=== PATIENT | female | born 1980 | race Caucasian/White ===

== ENCOUNTER → 2016-10-20 | Outpatient (REF) | payer BC | LOC: M SFHCWAGY 14:25 | PROVIDERS: ATTEND Nurse Practitioner Women's Health | DX: Z12.4 Encounter for screening for malignant neoplasm of cervix (principal) ==

== ENCOUNTER → 2016-10-28 | Outpatient (CLI) | payer BC ==
--- NOTE | 2016-10-28 10:31 | REP ---
PELVIC ULTRASOUND: Real-time sonographic evaluation of the pelvis performed utilizing transabdominal and endovaginal technique. Bladder measures 5.6 x 10.1 x 4.2 cm. The uterus measures 8.9 x 4.1 x 6.3 cm. Endometrial thickness is 4 mm with no endometrial fluid collection. Right ovary measures 2.6 x 1.5 x 2.0 cm. Left ovary measures 6.4 x 3.8 x 4.2 cm. There is a cyst of the left ovary 3.9 x 2.7 x 3.5 cm. There is blood flow seen in both ovaries with duplex Doppler evaluation, with no torsion, RI right ovary is 0.53 and left ovary 0.70. IMPRESSION: Left ovarian cyst with a maximum diameter of 3.9 cm. No free fluid. No torsion.
== END ==
LOC: M WHC 08:03
PROVIDERS: ATTEND Nurse Practitioner Women's Health
DX: N83.202 Unspecified ovarian cyst, left side (principal)

== ENCOUNTER 2017-06-12 06:00 | Day surgery (SDC) | payer OTHER ==
[~2017-06-12] VITALS: Ht 172.7 cm; Wt 76.8 kg
[~2017-06-12 06:00] MED LIST: VENTAER IN; WELLTAB38 PO
[2017-06-12] MEDS ORDERED: LR 1,000 ML IV SCH ×2 (06:15→09:15)
[2017-06-12 06:58] LABS: CONTROL LINE HCG INT CTR LINE PRESENT
[2017-06-12] MEDS ORDERED: BUPIVACAINE HCL 0.25% 30 ML VIAL As Ordered ONE (07:10)
[2017-06-12] MEDS ORDERED: PROPOFOL 200 MG/20 ML VIAL As Ordered ONE (07:47)
[2017-06-12] MEDS ORDERED: MIDAZOLAM INJ 2 MG/2 ML VIAL (J2250) As Ordered ONE (07:47)
[2017-06-12] MEDS ORDERED: ROCURONIUM BROMIDE 50 MG/5 ML VIAL As Ordered ONE (07:47)
[2017-06-12] MEDS ORDERED: KETOROLAC 60 MG/2 ML VIAL (J1885) As Ordered ONE (07:47)
[2017-06-12] MEDS ORDERED: LIDOCAINE 2% INJ 100 MG/5 ML SDV (FOR ANES.) As Ordered ONE (07:47)
[2017-06-12] MEDS ORDERED: ONDANSETRON 4MG/2ML VIAL (J2405) As Ordered ONE (07:47)
[2017-06-12] MEDS ORDERED: fentaNYL 100 MCG/2 ML INJECTION (J3010) As Ordered ONE (07:47)
[2017-06-12] MEDS ORDERED: dexameTHASONE 4 MG/ML 1ML VIAL (J1100) As Ordered ONE (07:47)
--- NOTE | 2017-06-12 08:51 | RO ---
DATE OF PROCEDURE: 06/12/2017 PREOPERATIVE DIAGNOSIS: Recurrent left ovarian cyst. POSTOPERATIVE DIAGNOSES: Left ovarian cyst. Pelvic congestion syndrome. PROCEDURE: Diagnostic operative laparoscopy with a left salpingo-oophorectomy. SURGEON: Zeina Cerda MD TENTER FRAME OPERATOR: Alvrao Osorio DO ANESTHESIA: General endotracheal anesthesia. ESTIMATED BLOOD LOSS: 5 mL. INTRAVENOUS FLUIDS: 1 liters of lactated Ringer solution. URINE OUTPUT: 800 mL. SPECIMEN: Left adnexa. PREOPERATIVE ANTIBIOTICS: None. INFECTION CLASSIFICATION: 1. OPERATIVE FINDINGS: Patient with approximately 3 cm left ovarian cyst. Normal appearing uterus. Normal appearing liver edge. There are dilated pelvic vessels along the left side consistent with pelvic congestion syndrome. DESCRIPTION OF OPERATION: After informed consent was obtained and written content was reviewed, the patient was brought to the operating room where general endotracheal anesthesia was obtained. She was then placed in lithotomy position and was prepped and draped in a normal sterile fashion. A time out in the operating room was then performed identifying the patient, the procedure to be performed, as well as drug allergies. A bivalved speculum was then placed in the vagina revealing the cervix. The anterior lip of the cervix was grasped with a single toothed tenaculum. Hulka tenaculum was then advanced through the cervical os for means to manipulate the uterus. The single tooth tenaculum and speculum was then removed. A Kiser catheter was then placed and set to gravity. Gloves were changed and attention was turned to the patient's abdomen where 0.25% Marcaine was infused in the umbilical region. This area was incised and a 10 mm trocar and sleeve was advanced through this incision. The laparoscope was then replaced revealing intra-abdominal placement. A pneumoperitoneum was then obtained with CO2 gas. Two additional port sites were placed on each side of the patient's abdomen. These areas were infused with 0.25% Marcaine. Incision was made in each one of these areas and 5 mm trocars and sleeves were advanced through each one of these incisions under direct visualization. Next, the abdomen was then surveyed with the above noted findings. Next, a left salpingo-oophorectomy was then performed. The left adnexa was placed on traction. The infundibulopelvic ligament on the left side was then cauterized and ligated using harmonic Kerwin scalpel device with good hemostasis noted. The mesosalpinx was then also cauterized and ligated using the harmonic Kerwin scalpel device. The uterine-ovarian ligament and fallopian tube was then detached at the level of the uterus with good hemostasis noted. The specimen was then placed in an Endo Catch bag and was removed from the patient's abdomen. The surgical sites were inspected and noted to be hemostatic. The umbilical port site fascia was closed using a Felix-Ahuja system with an #0 Vicryl. The pneumoperitoneum was then released. All three port site incisions were closed with #4-0 Monocryl and dressed with Dermabond. The Hulka tenaculum was then removed. Tenaculum sites were noted to be hemostatic. The Kiser catheter was removed. The patient was then taken out of lithotomy position and was awakened from general anesthesia and taken to recovery in stable condition. Counts were correct. MTDD
[2017-06-12] MEDS ORDERED: ONDANSETRON 4MG/2ML VIAL (J2405) IV PRN (09:15)
[2017-06-12] MEDS ORDERED: fentaNYL 100 MCG/2 ML INJECTION (J3010) IV PRN (09:15)
[2017-06-12] MEDS ORDERED: PERCOCET 5MG/325MG TAB PO PRN ×2 (09:15)
[2017-06-12] MEDS ORDERED: NEOSTIGMINE 10 MG/10 ML VIAL (J2710) As Ordered ONE (09:17)
[2017-06-12] MEDS ORDERED: GLYCOPYRROLATE INJ 0.2 MG/ML 2 ML VIAL As Ordered ONE (09:17)
[2017-06-12 10:55] VITALS: BP 132/75
[2017-06-12] MEDS ORDERED: KETOROLAC 30 MG/ML VIAL (J1885) IV SCH (14:00)
== END 2017-06-12 10:56 | disposition home or self-care (01) ==
LOC: M SDC 06:00
PROVIDERS: ATTEND Obstetrics & Gynecology
DX: N83.291 Other ovarian cyst, right side (principal); N94.89 Other specified conditions associated with female genital organs and menstrual cycle; R01.0 Benign and innocent cardiac murmurs; K21.9 Gastro-esophageal reflux disease without esophagitis; J45.909 Unspecified asthma, uncomplicated; R06.83 Snoring; Z79.899 Other long term (current) drug therapy
CPT/HCPCS: 36415; 58661; 84703; 85014; 85018; 86850; 86900; 86901; 88305; J1100; J1885; J2250; J2405; J2710; J3010

== ENCOUNTER → 2017-11-28 | Outpatient (REF) | payer OTHER | LOC: M LAB REF 17:26 | DX: N92.6 Irregular menstruation, unspecified (principal) | CPT/HCPCS: 88304 ==

== ENCOUNTER 2018-02-06 19:45 | Emergency (ER) | payer OTHER | END 2018-02-06 22:43 | disposition home or self-care (01) | LOC: M ED 19:45 | DX: R51 Headache (principal); M54.2 Cervicalgia; R68.84 Jaw pain; H92.01 Otalgia, right ear; Z82.3 Family history of stroke; J45.909 Unspecified asthma, uncomplicated; F41.9 Anxiety disorder, unspecified; F32.9 Major depressive disorder, single episode, unspecified; Z79.899 Other long term (current) drug therapy | CPT/HCPCS: 70450 ==

== ENCOUNTER → 2018-11-03 | Outpatient (CLI) | payer OTHER ==
[~2018-11-03] MED LIST changes: +ACET-683 PO; +FLUO1TAB3 PO; +IBUP-1114 PO
--- NOTE | 2018-11-04 09:17 | REP ---
Cervical spine seven views: Comparison is 01/12/2016. Vertebral body heights, interspacing alignment are normal. The prevertebral soft tissues are unremarkable. The facets are normally aligned. There is no listhesis on flexion or extension. The foramen are patent. The odontoid view is unremarkable. Impression: Negative cervical spine. There is no interval change. Electronically Signed by Van Martinez MD 11/03/2018 03:43 P
== END ==
LOC: M WUC 14:00
PROVIDERS: ATTEND Physician Assistant
DX: S13.4XXA Sprain of ligaments of cervical spine, initial encounter (principal); X58.XXXA Exposure to other specified factors, initial encounter; Y92.89 Other specified places as the place of occurrence of the external cause

== ENCOUNTER → 2019-03-06 | Outpatient (CLI) | payer OTHER ==
--- NOTE | 2019-03-06 18:38 | REP ---
HISTORY: Pain. COMPARISON: There are no priors for comparison. FINDINGS: There is no acute fracture, dislocation, subluxation, or joint effusion. Electronically Signed by Sam Kruger DO 03/07/2019 10:53 A
== END ==
LOC: M WUC 15:21
PROVIDERS: ATTEND Nurse Practitioner Family
DX: M25.521 Pain in right elbow (principal)

== ENCOUNTER → 2019-07-16 | Outpatient (REF) | payer OTHER ==
[2019-07-16 13:36] LABS: LUTEINIZING HORMONE 4.7 mIU/mL
== END ==
LOC: M LAB REF 12:46
PROVIDERS: ATTEND Family Medicine
DX: E53.8 Deficiency of other specified B group vitamins (principal); R61 Generalized hyperhidrosis

== ENCOUNTER → 2020-08-18 | Outpatient (REF) | payer OTHER ==
[2020-08-18 17:30] LABS: FOLATE 21.5 NG/ML
== END ==
LOC: M LAB REF 15:59
PROVIDERS: ATTEND Family Medicine
DX: R20.2 Paresthesia of skin (principal)

== ENCOUNTER → 2020-09-29 | Outpatient (CLI) | payer OTHER ==
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
== END ==
LOC: M RAD 17:56
PROVIDERS: ATTEND Orthopaedic Surgery
DX: M77.11 Lateral epicondylitis, right elbow (principal); M25.521 Pain in right elbow

== ENCOUNTER → 2020-12-13 | Outpatient (CLI) | payer OTHER ==
--- NOTE | 2020-12-13 15:32 | REPVR ---
PROCEDURE INFORMATION: Exam: MR Thoracic Spine Without Contrast Exam date and time: 12/13/2020 2:35 PM Age: 40 years old Clinical indication: Pain in thoracic spine; Other: Not indicated TECHNIQUE: Imaging protocol: Multiplanar magnetic resonance images of the thoracic spine without contrast. COMPARISON: CR Spine,LS wBENDING MIN 6 VIEWS 01/12/2016 4:31 PM FINDINGS: Vertebrae: Normal vertebral body alignment. Incidental hemangiomas in the T3 and T9 vertebral bodies. No compression fracture. Spinal cord: Normal signal. No cord compression. No syrinx or demyelination. Discs/Spinal canal/Neural foramina: Eccentric right paracentral disc bulge measuring 7 x 4 mm at T7-8 and minor posterior disc bulging at T8-9. No significant spinal stenosis or disc herniation. Remaining disc spaces are unremarkable. Soft tissues: Unremarkable. IMPRESSION: 1. Eccentric 4 x 7 mm right paracentral disc bulge at T7-8 and minor posterior disc bulging at T8-9. 2. No cord compression or spinal stenosis. Electronically signed by: Jason Salazar On 12/13/2020 15:32:12 PM
== END ==
LOC: M RAD 13:33
PROVIDERS: ATTEND Physician Assistant
DX: M51.24 Other intervertebral disc displacement, thoracic region (principal)

== ENCOUNTER → 2021-01-19 | Outpatient (CLI) | payer OTHER ==
[2021-01-19 13:42] LABS: BASO % 0.6 % (0.0-1.0); EOS # 0.2 10^3/uL (0.0-0.5); EOS % 3.3 % (0.0-3.0); HEMATOCRIT 37.3 % (36.0-47.0); HEMOGLOBIN 12.4 g/dl (12.0-15.5); LYMPH # 1.7 10^3/uL (1.5-5.0); LYMPH % 35.3 % (24.0-44.0); MEAN CORPUSCULAR HEMOGLOBIN 30.4 pg (27.0-33.0); MEAN CORPUSCULAR HGB CONC 33.2 g/dl (32.0-36.5); MEAN CORPUSCULAR VOLUME 91.4 fl (80.0-96.0); MONO # 0.5 10^3/uL (0.0-0.8); MONO % 9.3 % (2.0-8.0); NEUTROPHILS # 2.5 10^3/uL (1.5-8.5); NEUTROPHILS % 51.1 % (36.0-66.0); PLATELET COUNT, AUTOMATED 280 10^3/uL (150-450); RED BLOOD COUNT 4.08 10^6/uL (4.00-5.40); WHITE BLOOD COUNT 4.8 10^3/uL (4.0-10.0)
[2021-01-19 14:10] LABS: ERYTHROCYTE SEDIMENTATION RATE 8 mm/hr (0-20)
[2021-01-19 14:21] LABS: ALT/SGPT 25 U/L (12-78); BILIRUBIN,TOTAL 1.3 MG/DL (0.2-1.0); BLOOD UREA NITROGEN 7 MG/DL (7-18); CALCIUM LEVEL 9.4 MG/DL (8.5-10.1); CARBON DIOXIDE LEVEL 27 MEQ/L (21-32); CHLORIDE LEVEL 105 MEQ/L (98-107); CREATININE FOR GFR 0.74 MG/DL (0.55-1.30); GLOMERULAR FILTRATION RATE > 60.0 (>58); GLUCOSE, FASTING 100 MG/DL (70-100); SODIUM LEVEL 139 MEQ/L (136-145)
[2021-01-19 14:22] LABS: ALBUMIN 4.1 GM/DL (3.2-5.2); CHOLESTEROL LEVEL 160 MG/DL (<200); CHOLESTEROL RISK RATIO 2.461 (<5); HDL CHOLESTEROL 65 MG/DL (>40); LDL CHOLESTEROL 75 MG/DL (<100); NON-HDL-C 95 MG/DL; RHEUMATOID FACTOR QUANT < 10.0 IU/ML (<15.0); TOTAL PROTEIN 7.2 GM/DL (6.4-8.2); TRIGLYCERIDES LEVEL 99 MG/DL (<150)
[2021-01-19 14:40] LABS: HEMOGLOBIN A1c 5.2 %
[2021-01-21 13:59] LABS: ALBUMIN 4.62 GM/DL (3.29-5.55); ALBUMIN % 64.1 % (55.8-66.1); ALPHA-1-GLOBULIN % 3.2 % (2.9-4.9); ALPHA-1-GLOBULINS 0.23 GM/DL (0.17-0.41); ALPHA-2-GLOBULINS % 8.5 % (7.1-11.8); BETA-1-GLOBULINS % 5.5 % (4.7-7.2); GAMMA GLOBULIN % 14.7 % (11.1-18.8)
[2021-01-21 14:00] LABS: ALPHA-2-GLOBULINS 0.61 GM/DL (0.42-0.99); BETA-2-GLOBULINS 0.29 GM/DL (0.19-0.55); GAMMA GLOBULINS 1.06 GM/DL (0.65-1.58)
== END ==
LOC: M WUC 09:08
PROVIDERS: ATTEND Psychiatry & Neurology Neurology
DX: E78.5 Hyperlipidemia, unspecified (principal); G62.9 Polyneuropathy, unspecified

== ENCOUNTER 2021-04-14 08:26 | Emergency (ER) | payer OTHER ==
[~2021-04-14] VITALS: Ht 172.7 cm; Wt 70.6 kg
[2021-04-14] MEDS ORDERED: NS 1,000 ML IV SCH (08:40)
[2021-04-14 09:09] LABS: BASO % 0.4 % (0.0-1.0); EOS # 0.1 10^3/uL (0.0-0.5); EOS % 1.1 % (0.0-3.0); HEMATOCRIT 37.7 % (36.0-47.0); HEMOGLOBIN 12.8 g/dl (12.0-15.5); LYMPH # 1.7 10^3/uL (1.5-5.0); MEAN CORPUSCULAR HEMOGLOBIN 30.6 pg (27.0-33.0); MEAN CORPUSCULAR VOLUME 90.2 fl (80.0-96.0); MONO # 0.5 10^3/uL (0.0-0.8); NEUTROPHILS % 57.1 % (36.0-66.0); PLATELET COUNT, AUTOMATED 293 10^3/uL (150-450); RED BLOOD COUNT 4.18 10^6/uL (4.00-5.40); WHITE BLOOD COUNT 5.3 10^3/uL (4.0-10.0)
[2021-04-14 09:35] LABS: BILIRUBIN,DIRECT 0.3 MG/DL (0.0-0.2); BILIRUBIN,TOTAL 1.2 MG/DL (0.2-1.0); TOTAL PROTEIN 7.2 GM/DL (6.4-8.2)
[2021-04-14] MEDS ORDERED: ISOVUE-370 76% 100ML VIAL As Ordered ONE (10:02)
[2021-04-14] MEDS ORDERED: ESSETAB4 PO (10:09)
[2021-04-14] MEDS ORDERED: SAFF176. PO (10:09)
--- NOTE | 2021-04-14 11:10 | REP ---
INDICATION: abd pain. COMPARISON: None. TECHNIQUE: Helical scanning was acquired and 4 mm axial images are re-formatted. Coronal and sagittal MPR images were generated and reviewed. The contrast enhancement dose is 100 mL of intravenous Isovue 370. FINDINGS: Preliminary digital mortuary technician radiograph demonstrates an unremarkable bowel gas pattern. The lung bases are clear on axial CT images. The liver and the spleen are normal in size homogeneous in texture. There is a small hepatic cyst in the right lobe 1 cm in diameter. No other focal liver lesion is seen. There is gallbladder wall thickening mild in degree and enhancement noted consistent with some degree of cholecystitis. No biliary ductal dilation is observed within the liver. The common bile duct is not dilated. No pancreatic abnormality is observed. Normal adrenal glands are visible bilaterally. The kidneys enhance symmetrically and are morphologically intact. No retroperitoneal mass or adenopathy is seen. The left gonadal veins are somewhat prominent. Question pelvic congestion. The patient gives a history of oophorectomy and I do not see a normal left ovary. Small normal follicle cysts are seen in the right ovary. No uterine abnormality is observed. Small and large bowel loops are unremarkable in the abdomen and pelvis. A normal appendix is seen in the right lower quadrant coursing over the urinary bladder. The urinary bladder is intact. No abdominal wall defect is seen. No bony destructive lesion is observed. Delayed acquisition images show no filling defect in the intrarenal collecting systems. Proximal ureters are unremarkable. IMPRESSION: The left gonadal veins are somewhat dilated into the pelvis raising question of pelvic congestion symptoms. The left ovary appears to be surgically absent. This should be correlated with surgical history. No adnexal mass or adenopathy is seen on either side. Otherwise negative. <Electronically signed by Tomy Gray > 04/14/21 [id number]
[2021-04-14] MEDS ORDERED: KETOROLAC 30 MG/ML 1ML VIAL IV ONE (11:30)
--- NOTE | 2021-04-14 12:11 | REP ---
INDICATION: abd pain. COMPARISON: Comparison is made with today's CT study. This showed mild gallbladder wall thickening and enhancement. TECHNIQUE: Right upper quadrant sonography. FINDINGS: Scanning through the right upper quadrant of the abdomen demonstrates a normal sized, thin walled gallbladder containing mobile shadowing echogenic foci consistent with cholelithiasis. Gallbladder wall measures 1.2 mm on ultrasound images. No pericholecystic fluid is seen.. Common bile duct is normal measuring 0.3 cm in greatest diameter. No focal liver lesion is seen. Liver size is normal. No pancreatic abnormality is observed. No right renal abnormality is seen. There is no evidence of ascites. The right kidney measures 10.4 x 5.2 x 4.8 cm. IMPRESSION: Cholelithiasis. Otherwise negative right upper quadrant sonogram. <Electronically signed by Tomy Gray > 04/14/21 [id number]
[2021-04-14] MEDS ORDERED: KETO10TAB PO (12:24)
[2021-04-14 12:31] VITALS: BP 139/95
== END 2021-04-14 12:52 | disposition home or self-care (01) ==
LOC: M ED 08:26
DX: K80.20 Calculus of gallbladder without cholecystitis without obstruction (principal); N94.89 Other specified conditions associated with female genital organs and menstrual cycle; J45.909 Unspecified asthma, uncomplicated; Q07.00 Arnold-Chiari syndrome without spina bifida or hydrocephalus; Z79.899 Other long term (current) drug therapy
CPT/HCPCS: 74177; 76705; 80047; 80076; 83690; 84702; 85025; 96360; 96361; 99284; J1885; Q9967

== ENCOUNTER → 2021-05-11 | Outpatient (CLI) | payer OTHER ==
[~2021-05-11] MED LIST changes: +E-Z-GAS II EFFERVESCENT PACKET (SODIUM BICARB./CITRIC ACID/SIMETHICONE) As Ordered ONE; +E-Z-HD 98% w/w 340GM SUSP BTL As Ordered ONE; +E-Z-PAQUE 96% w/w SUSP 176GM BTL As Ordered ONE; +ESSETAB4 PO; +KETO10TAB PO; +SAFF176. PO
--- NOTE | 2021-05-11 17:30 | REP ---
INDICATION: ABD PAIN, DIARRHEA. COMPARISON: CT abdomen pelvis scan dated 04/14/2021 TECHNIQUE: This procedure was performed by JOSE Staton, under the direct supervision of Dr. Collins. Images were reviewed with Dr. Collins prior to dictation. Liquid barium and gas producing crystals were given in the erect position, as well as liquid barium in the prone oblique position in order to perform a double contrast upper GI examination. Additional liquid barium was given at the end of the examination in order to perform a small-bowel follow-through. FINDINGS: The continuous miner operator film shows no organomegaly or pathological masses. The intestinal gas pattern is unremarkable. The oral and pharyngeal stages of deglutition were unremarkable. Esophageal transport is prompt and efficient and there is no evidence of esophagitis, stricture, or mucosal ring. There is no evidence of a hiatal hernia. Gastroesophageal reflux was not observed on this examination. The stomach alvarez are normally outlined. The rugal folds are smooth and regular. There is no gastritis, neoplasm, or ulcerative disease. The duodenal alvarez are normally outlined. The mucosal folds are smooth and regular. There is no duodenitis, peptic ulcer disease or neoplasm. The visualized portion of the proximal small bowel appears normal in course and caliber. The barium column was followed through the small bowel to the level of the terminal ileum. Small bowel transit time is approximately 105 minutes. During fluoroscopy gentle palpation shows all loops are freely movable and pliable. There is no fixed angulated loops. The small bowel mucosal pattern is normal in course and caliber. There is no transition to suggest a partial small bowel obstruction. The terminal ileum was not well visualized due to small bowel loop crowding. IMPRESSION: Unremarkable upper GI with small-bowel follow-through 1.8 minutes of fluoroscopy time was utilized for this procedure. Some fluoroscopic images are performed with last image hold technology. These images require no additional radiation. <Electronically signed by Enma Hagan > 05/11/21 1641 <Electronically signed by Van Collins > 05/11/21 [id number]
== END ==
LOC: M RAD 08:18
PROVIDERS: ATTEND Surgery
DX: R19.7 Diarrhea, unspecified (principal); R10.84 Generalized abdominal pain

== ENCOUNTER → 2021-06-16 | Outpatient (REF) | payer OTHER, BC ==
[~2021-06-16] MED LIST changes: -E-Z-GAS II EFFERVESCENT PACKET (SODIUM BICARB./CITRIC ACID/SIMETHICONE) As Ordered ONE; -E-Z-HD 98% w/w 340GM SUSP BTL As Ordered ONE; -E-Z-PAQUE 96% w/w SUSP 176GM BTL As Ordered ONE
== END ==
LOC: M SFHCWAGY 17:17
PROVIDERS: ATTEND Nurse Practitioner Women's Health
DX: Z12.4 Encounter for screening for malignant neoplasm of cervix (principal)

== ENCOUNTER → 2021-07-01 | Outpatient (CLI) | payer OTHER | LOC: M WHC 07:10 | PROVIDERS: ATTEND Nurse Practitioner Women's Health | DX: N93.9 Abnormal uterine and vaginal bleeding, unspecified (principal); N83.201 Unspecified ovarian cyst, right side ==

== ENCOUNTER → 2021-07-21 | Outpatient (REF) | payer OTHER ==
[2021-07-21 19:45] LABS: ATYPICAL LYMPH 4 % (0-5); EOSINOPHILS 3 % (0-3); LYMPHOCYTES 37 % (16-44); MONOCYTES 5 % (0-5); NEUTROPHILS 51 % (28-66); PLATELET ESTIMATE NORMAL (NORMAL)
== END ==
LOC: M LAB REF 16:45
PROVIDERS: ATTEND Family Medicine
DX: E80.4 Gilbert syndrome (principal)

== ENCOUNTER → 2021-08-04 | Outpatient (CLI) | payer OTHER | LOC: M RAD 07:54 | PROVIDERS: ATTEND Surgery | DX: R10.84 Generalized abdominal pain (principal) | CPT/HCPCS: 78227; A9537 ==

== ENCOUNTER → 2021-09-13 | Outpatient (CLI) | payer OTHER | LOC: M WHC 07:04 | PROVIDERS: ATTEND Obstetrics & Gynecology | DX: R10.2 Pelvic and perineal pain (principal); N88.8 Other specified noninflammatory disorders of cervix uteri ==

== ENCOUNTER → 2021-11-01 | Outpatient (CLI) | payer OTHER | LOC: M PLAIMG 15:47 | PROVIDERS: ATTEND Physician Assistant Surgical | DX: M25.552 Pain in left hip (principal) ==

== ENCOUNTER 2021-11-15 15:27 | Emergency (ER) | payer OTHER ==
[~2021-11-15] VITALS: Ht 172.7 cm; Wt 72.3 kg
[2021-11-15] MEDS ORDERED: MORPHINE 4 MG/ML 1ML VIAL/SYRINGE IV ONE (18:45)
[2021-11-15] MEDS ORDERED: ONDANSETRON 4MG/2ML VIAL IV ONE (18:45)
[2021-11-15] MEDS ORDERED: NS 1,000 ML IV SCH (18:45)
[2021-11-15 18:57] LABS: BASO % 0.4 % (0.0-1.0); EOS % 0.1 % (0.0-3.0); HEMATOCRIT 35.3 % (36.0-47.0); MEAN CORPUSCULAR HEMOGLOBIN 30.1 pg (27.0-33.0); MEAN CORPUSCULAR VOLUME 88.5 fl (80.0-96.0); MONO # 0.7 10^3/uL (0.0-0.8); MONO % 9.2 % (2.0-8.0); NEUTROPHILS # 4.8 10^3/uL (1.5-8.5); NEUTROPHILS % 63.9 % (36.0-66.0); PLATELET COUNT, AUTOMATED 303 10^3/uL (150-450); RED BLOOD COUNT 3.99 10^6/uL (4.00-5.40); WHITE BLOOD COUNT 7.6 10^3/uL (4.0-10.0)
[2021-11-15 19:25] LABS: ALBUMIN 4.3 GM/DL (3.2-5.2); ALT/SGPT 37 U/L (12-78); BILIRUBIN,DIRECT 0.5 MG/DL (0.0-0.2); BILIRUBIN,TOTAL 1.3 MG/DL (0.2-1.0); BLOOD UREA NITROGEN 11 MG/DL (7-18); CALCIUM LEVEL 9.6 MG/DL (8.5-10.1); CARBON DIOXIDE LEVEL 30 MEQ/L (21-32); CHLORIDE LEVEL 104 MEQ/L (98-107); CREATININE FOR GFR 0.76 MG/DL (0.55-1.30); GLOMERULAR FILTRATION RATE > 60.0 (>58); GLUCOSE, FASTING 87 MG/DL (70-100); LIPASE 166 U/L (73-393); POTASSIUM SERUM 3.9 MEQ/L (3.5-5.1); SODIUM LEVEL 138 MEQ/L (136-145); TOTAL PROTEIN 7.7 GM/DL (6.4-8.2)
[2021-11-15 19:27] LABS: HCG, SERUM QUALITATIVE NEGATIVE (NEGATIVE)
[2021-11-15 19:51] LABS: CK-MB VALUE MASS 1.2 NG/ML (<3.6); CPK CREATINE PHOSPHOKINASE 132 U/L (26-192); MB/CK RELATIVE INDEX 0.91 (< OR =4)
[2021-11-15] MEDS ORDERED: PERC5TAB12 PO (22:01)
[2021-11-15] MEDS ORDERED: ONDA4TAB6 PO (22:02)
[2021-11-15 22:15] VITALS: BP 157/62
== END 2021-11-15 22:20 | disposition home or self-care (01) ==
LOC: M ED 15:27
DX: K80.50 Calculus of bile duct without cholangitis or cholecystitis without obstruction (principal); J45.909 Unspecified asthma, uncomplicated
CPT/HCPCS: 76705; 80048; 80076; 81001; 82550; 82553; 83690; 84484; 84703; 85025; 87086; 93005; 93041; 96361; 96374; 96375; 99284; J2270; J2405

== ENCOUNTER → 2021-11-27 | Outpatient (CLI) | payer OTHER ==
[~2021-11-27] MED LIST changes: +ONDA4TAB6 PO; +PERC5TAB12 PO
== END ==
LOC: M LABSMTC 10:23
PROVIDERS: ATTEND Anesthesiology
DX: Z01.812 Encounter for preprocedural laboratory examination (principal); Z20.822 Contact with and (suspected) exposure to COVID-19

== ENCOUNTER 2021-12-02 10:50 | Day surgery (SDC) | payer OTHER ==
[~2021-12-02] VITALS: Ht 172.7 cm; Wt 70.0 kg
[~2021-12-02 10:50] MED LIST changes: +NS 1,000 ML IV ONE
[2021-12-02] MEDS ORDERED: fentaNYL 100 MCG/2 ML INJECTION As Ordered ONE (12:27)
[2021-12-02] MEDS ORDERED: propofoL 200 MG/20 ML VIAL As Ordered ONE (12:28)
[2021-12-02] MEDS ORDERED: LIDOCAINE 2% 100MG/5ML SDV (FOR ANES.) As Ordered ONE (12:28)
[2021-12-02 13:22] VITALS: BP 126/75
== END 2021-12-02 13:24 | disposition home or self-care (01) ==
LOC: M OPP 10:50
PROVIDERS: ATTEND Internal Medicine Gastroenterology
DX: D12.6 Benign neoplasm of colon, unspecified (principal); K64.8 Other hemorrhoids; R19.4 Change in bowel habit; K29.70 Gastritis, unspecified, without bleeding; R10.13 Epigastric pain; Q07.00 Arnold-Chiari syndrome without spina bifida or hydrocephalus; E80.4 Gilbert syndrome; Z79.899 Other long term (current) drug therapy; Z80.0 Family history of malignant neoplasm of digestive organs; Z80.3 Family history of malignant neoplasm of breast
CPT/HCPCS: 43239; 45380; 88305; J3010

== ENCOUNTER → 2021-12-03 | Outpatient (CLI) | payer OTHER ==
[~2021-12-03] MED LIST changes: +ISOVUE-300 61% 50ML VIAL As Ordered ONE; +LIDOCAINE 1% MDV 20ML VIAL As Ordered ONE; -NS 1,000 ML IV ONE; +methylPREDNISolone SUSP 40MG/ML 1ML VIAL (DEPO MEDROL) As Ordered ONE
== END ==
LOC: M RADPRO 15:00
PROVIDERS: ATTEND Physician Assistant Surgical
DX: M70.62 Trochanteric bursitis, left hip (principal)
CPT/HCPCS: 20610; 77002; J1030; Q9967

== ENCOUNTER → 2022-01-09 | Outpatient (CLI) | payer OTHER ==
[~2022-01-09] MED LIST changes: +FAMO40TA3 PO; -ISOVUE-300 61% 50ML VIAL As Ordered ONE; -LIDOCAINE 1% MDV 20ML VIAL As Ordered ONE; -methylPREDNISolone SUSP 40MG/ML 1ML VIAL (DEPO MEDROL) As Ordered ONE
== END ==
LOC: M LABSMTC 09:08
PROVIDERS: ATTEND Anesthesiology
DX: Z01.812 Encounter for preprocedural laboratory examination (principal); Z20.822 Contact with and (suspected) exposure to COVID-19

== ENCOUNTER 2022-01-11 11:03 | Day surgery (SDC) | payer OTHER ==
[~2022-01-11] VITALS: Ht 172.7 cm; Wt 68.0 kg
[~2022-01-11 11:03] MED LIST changes: +ceFAZolin SOD 2 GM in IV 1 EA IV ONE
[2022-01-11] MEDS ORDERED: LR 1,000 ML IV SCH ×2 (11:15→13:25)
[2022-01-11] MEDS ORDERED: MIDAZOLAM INJ 2MG/2ML VIAL (J2250 PER 1MG) As Ordered ONE (11:27)
[2022-01-11] MEDS ORDERED: ONDANSETRON 4MG/2ML VIAL As Ordered ONE (11:28)
[2022-01-11] MEDS ORDERED: KETOROLAC 60MG 2ML VIAL As Ordered ONE (11:28)
[2022-01-11] MEDS ORDERED: propofoL 200 MG/20 ML VIAL As Ordered ONE (11:28)
[2022-01-11] MEDS ORDERED: ROCURONIUM BROMIDE 50 MG/5 ML VIAL As Ordered ONE (11:28)
[2022-01-11] MEDS ORDERED: LIDOCAINE 2% 100MG/5ML SDV (FOR ANES.) As Ordered ONE (11:28)
[2022-01-11] MEDS ORDERED: dexameTHASONE 4 MG/ML 1ML VIAL (J1100 PER 1MG) As Ordered ONE (11:28)
[2022-01-11] MEDS ORDERED: ACETAMINOPHEN 1000MG 100ML IV BTL (OFIRMEV) (J0131 PER 10MG) As Ordered ONE (11:28)
[2022-01-11] MEDS ORDERED: fentaNYL 100 MCG/2 ML INJECTION As Ordered ONE (11:28)
[2022-01-11] MEDS ORDERED: BUPIVACAINE/EPIN 0.25% 30 ML VIAL As Ordered ONE (12:13)
[2022-01-11] MEDS ORDERED: ePHEDrine SULFATE 25 MG/5 ML(5MG/ML) SYRINGE As Ordered ONE (12:53)
[2022-01-11] MEDS ORDERED: PHENYLephrine 500MCG 5ML (100MCG/ML) SYRINGE As Ordered ONE (12:54)
[2022-01-11] MEDS ORDERED: SUGAMMADEX SODIUM 500 MG/5 ML VIAL (BRIDION) As Ordered ONE (13:07)
[2022-01-11] MEDS ORDERED: oxyCODONE 5MG TAB PO PRN (13:25)
[2022-01-11] MEDS ORDERED: fentaNYL 100 MCG/2 ML INJECTION IV PRN (13:25)
[2022-01-11] MEDS ORDERED: ONDANSETRON 4MG/2ML VIAL IV PRN (13:25)
[2022-01-11] MEDS ORDERED: METOCLOPRAMIDE INJ 10MG/2ML VIAL (J2765 PER 1) IV PRN (13:25)
[2022-01-11 14:52] VITALS: BP 144/74
== END 2022-01-11 15:03 | disposition home or self-care (01) ==
LOC: M SDC 11:03
PROVIDERS: ATTEND Surgery
DX: K80.20 Calculus of gallbladder without cholecystitis without obstruction (principal); K21.9 Gastro-esophageal reflux disease without esophagitis; J45.909 Unspecified asthma, uncomplicated; F41.9 Anxiety disorder, unspecified; F32.A Depression, unspecified; Z79.51 Long term (current) use of inhaled steroids; Z79.899 Other long term (current) drug therapy; Q07.00 Arnold-Chiari syndrome without spina bifida or hydrocephalus
CPT/HCPCS: 47562; 81025; 88304; J0131; J0690; J1100; J1885; J2250; J2370; J2405; J3010

== ENCOUNTER → 2022-09-06 | Outpatient (CLI) | payer OTHER ==
[~2022-09-06] MED LIST changes: +E-Z-GAS II EFFERVESCENT PACKET (SODIUM BICARB./CITRIC ACID/SIMETHICONE) As Ordered ONE; +E-Z-HD 98% w/w 340GM SUSP BTL As Ordered ONE; +E-Z-PAQUE 96% w/w SUSP 176GM BTL As Ordered ONE; -ceFAZolin SOD 2 GM in IV 1 EA IV ONE
== END ==
LOC: M RAD 09:44
PROVIDERS: ATTEND Family Medicine
DX: R13.10 Dysphagia, unspecified (principal); K21.9 Gastro-esophageal reflux disease without esophagitis

== ENCOUNTER → 2022-10-20 | Outpatient (CLI) | payer OTHER ==
[~2022-10-20] MED LIST changes: -E-Z-GAS II EFFERVESCENT PACKET (SODIUM BICARB./CITRIC ACID/SIMETHICONE) As Ordered ONE; -E-Z-HD 98% w/w 340GM SUSP BTL As Ordered ONE; -E-Z-PAQUE 96% w/w SUSP 176GM BTL As Ordered ONE; +PROHANCE 279.3MG/ML 15ML VIAL As Ordered ONE
== END ==
LOC: M RAD 09:14
PROVIDERS: ATTEND Physician Assistant
DX: H93.13 Tinnitus, bilateral (principal); R90.82 White matter disease, unspecified; J34.1 Cyst and mucocele of nose and nasal sinus; J32.8 Other chronic sinusitis
CPT/HCPCS: 70553; A9576

== ENCOUNTER → 2022-12-02 | Outpatient (CLI) | payer OTHER ==
[~2022-12-02] MED LIST changes: -PROHANCE 279.3MG/ML 15ML VIAL As Ordered ONE
== END ==
LOC: M PLAIMG 13:56
PROVIDERS: ATTEND Physician Assistant Surgical
DX: M70.62 Trochanteric bursitis, left hip (principal)

== ENCOUNTER → 2023-01-31 | Outpatient (CLI) | payer OTHER ==
[2023-01-31 11:17] LABS: ALBUMIN 4.2 G/DL (3.2-5.2); ALKALINE PHOSPHATASE 67 U/L (46-116); ALT/SGPT 39 U/L (7.0-40); AST/SGOT 19 U/L (<34); BLOOD UREA NITROGEN 11 MG/DL (9-23); CALCIUM LEVEL 9.3 MG/DL (8.5-10.1); CARBON DIOXIDE LEVEL 25 MMOL/L (20-31); CHLORIDE LEVEL 106 MMOL/L (98-107); CHOLESTEROL LEVEL 171 MG/DL (<200); CHOLESTEROL RISK RATIO 2.22 (<5); CREATININE FOR GFR 0.86 MG/DL (0.55-1.30); GLOMERULAR FILTRATION RATE > 60.0 (>58); GLUCOSE, FASTING 98 MG/DL (60-100); HDL CHOLESTEROL 76.9 MG/DL (>40); LDL CHOLESTEROL 73.7 MG/DL (<100); NON-HDL-C 94.1 MG/DL; POTASSIUM SERUM 3.7 MMOL/L (3.5-5.1); SODIUM LEVEL 141 MMOL/L (136-145); TOTAL PROTEIN 7.2 G/DL (5.7-8.2); TRIGLYCERIDES LEVEL 102 MG/DL (<150)
[2023-01-31 11:18] LABS: THYROID STIMULATING HORMONE 2.673 uIU/ML (0.55-4.78)
== END ==
LOC: M PLALAB 08:54
PROVIDERS: ATTEND Family Medicine
DX: E78.5 Hyperlipidemia, unspecified (principal); F41.9 Anxiety disorder, unspecified

== ENCOUNTER → 2023-01-31 | Outpatient (REF) | payer OTHER | LOC: M SFHCWAGY 13:05 | PROVIDERS: ATTEND Obstetrics & Gynecology | DX: Z12.4 Encounter for screening for malignant neoplasm of cervix (principal) | CPT/HCPCS: 87624; G0123 ==

== ENCOUNTER → 2023-02-20 | Outpatient (REF) | payer OTHER ==
[~2023-02-20] MED LIST changes: +ALBU6.7H6 INH; +BUPR-365 PO; +TOPI-254 PO
[2023-02-20 18:40] LABS: T UPTAKE 31.5 % (22.5-37.0); THYROID STIMULATING HORMONE 1.304 uIU/ML (0.55-4.78); THYROXINE (T4) 6.3 UG/DL (4.5-10.9)
== END ==
LOC: M WUC 17:13
PROVIDERS: ATTEND Obstetrics & Gynecology
DX: R14.0 Abdominal distension (gaseous) (principal)

== ENCOUNTER 2023-02-28 07:39 | Day surgery (SDC) | payer OTHER ==
[~2023-02-28] VITALS: Ht 172.7 cm; Wt 66.5 kg
[~2023-02-28 07:39] MED LIST changes: +NS 1,000 ML IV ONE; +propofoL 200 MG/20 ML VIAL As Ordered ONE
[2023-02-28] MEDS ORDERED: propofoL 200 MG/20 ML VIAL As Ordered ONE (08:24)
[2023-02-28 08:52] VITALS: TEMP 96.2
[2023-02-28 09:25] VITALS: BP 127/68; O2SAT 100
== END 2023-02-28 09:36 | disposition home or self-care (01) ==
LOC: M OPP 07:39
PROVIDERS: ATTEND Internal Medicine Gastroenterology
DX: Z12.11 Encounter for screening for malignant neoplasm of colon (principal); Z86.010 Personal history of colon polyps; Z83.71 Family history of colonic polyps; D12.6 Benign neoplasm of colon, unspecified; K64.4 Residual hemorrhoidal skin tags; K64.8 Other hemorrhoids; Z79.51 Long term (current) use of inhaled steroids; Z79.899 Other long term (current) drug therapy

== ENCOUNTER → 2023-07-03 | Outpatient (CLI) | payer OTHER ==
[~2023-07-03] MED LIST changes: -NS 1,000 ML IV ONE; +TOPI-21 PO; -TOPI-254 PO; -propofoL 200 MG/20 ML VIAL As Ordered ONE
== END ==
LOC: M RAD 15:37
PROVIDERS: ATTEND Family Medicine
DX: M54.50 Low back pain, unspecified (principal)

== ENCOUNTER 2023-07-30 13:46 | Observation (INO) | payer OTHER ==
[~2023-07-30] VITALS: Ht 172.7 cm; Wt 70.1 kg
[2023-07-30] MEDS ORDERED: SAFF176. PO (14:20)
[2023-07-30] MEDS ORDERED: ISOVUE-370 76% 100ML VIAL As Ordered ONE (14:22)
[2023-07-30 14:24] LABS: BASO # 0.1 10^3/uL (0.0-0.2); BASO % 0.9 % (0.0-1.0); EOS # 0.5 10^3/uL (0.0-0.5); EOS % 8.4 % (0.0-3.0); HEMATOCRIT 36.8 % (36.0-47.0); HEMOGLOBIN 12.8 g/dl (12.0-15.5); LYMPH # 2.4 10^3/uL (1.5-5.0); LYMPH % 37.4 % (24.0-44.0); MEAN CORPUSCULAR HEMOGLOBIN 31.1 pg (27.0-33.0); MEAN CORPUSCULAR HGB CONC 34.8 g/dl (32.0-36.5); MEAN CORPUSCULAR VOLUME 89.3 fl (80.0-96.0); MONO # 0.5 10^3/uL (0.0-0.8); MONO % 7.2 % (2.0-8.0); NEUTROPHILS # 2.9 10^3/uL (1.5-8.5); NEUTROPHILS % 45.3 % (36.0-66.0); PLATELET COUNT, AUTOMATED 374 10^3/uL (150-450); RED BLOOD COUNT 4.12 10^6/uL (4.00-5.40); WHITE BLOOD COUNT 6.4 10^3/uL (4.0-10.0)
[2023-07-30] MEDS ORDERED: MAGN200T PO (14:25)
[2023-07-30] MEDS ORDERED: NAPR-885 PO (14:25)
[2023-07-30] MEDS ORDERED: OXYC1TAB23 PO (14:25)
[2023-07-30 14:37] LABS: INR 0.99; PROTHROMBIN TIME 12.8 SECONDS (12.5-14.5)
[2023-07-30 14:38] LABS: PARTIAL THROMBOPLASTIN TIME 31.3 SECONDS (24.8-34.2)
[2023-07-30 14:55] LABS: BLOOD UREA NITROGEN 16 MG/DL (9-23); CALCIUM LEVEL 9.5 MG/DL (8.5-10.1); CARBON DIOXIDE LEVEL 25 MMOL/L (20-31); CHLORIDE LEVEL 108 MMOL/L (98-107); CK-MB VALUE MASS < 1.0 NG/ML (<3.6); CPK CREATINE PHOSPHOKINASE 75 U/L (34-145); CREATININE FOR GFR 0.73 MG/DL (0.55-1.30); GLOMERULAR FILTRATION RATE > 60.0 (>58); GLUCOSE, FASTING 94 MG/DL (60-100); MB/CK RELATIVE INDEX 1.33 (< OR =4); POTASSIUM SERUM 3.8 MMOL/L (3.5-5.1); SODIUM LEVEL 140 MMOL/L (136-145)
[2023-07-30 14:57] LABS: THYROID STIMULATING HORMONE 1.916 uIU/ML (0.55-4.78)
[2023-07-30 14:58] LABS: FREE T4 1.04 NG/DL (0.89-1.76)
[2023-07-30] MEDS ORDERED: MORPHINE 2 MG/ML 1ML VIAL IV ONE (15:25)
[2023-07-30 16:00] LABS: RSV AMPLIFICATION NEGATIVE (NEGATIVE)
[2023-07-30] MEDS ORDERED: VITA100093 PO (16:18)
[2023-07-30] MEDS ORDERED: HOME MED LIST COMPLETE! XX SCH (16:20)
[2023-07-30] MEDS ORDERED: MAALOX 30 ML SUSP *UDC PO PRN (16:55)
[2023-07-30] MEDS ORDERED: MOM 30ML SUSPENSION UDC PO PRN (16:55)
[2023-07-30] MEDS ORDERED: PERCOCET 5MG/325MG TAB PO PRN (16:55)
[2023-07-30] MEDS ORDERED: ALBUTEROL 90 MCG/ACT 8GM HFA INHALER INH PRN (16:55)
[2023-07-30] MEDS ORDERED: ACETAMINOPHEN TAB 650MG DOSE (2X325MG) PO PRN (16:55)
[2023-07-30 17:38] LABS: ERYTHROCYTE SEDIMENTATION RATE 15 mm/hr (0-20)
[2023-07-30 17:46] LABS: C REACTIVE PROTEIN QUANTITATIV < 0.40 MG/DL (<1.0)
[2023-07-30 18:47] VITALS: BP 121/63; TEMP 97.7; O2SAT 97
[2023-07-30 20:00] VITALS: O2SAT 97
[2023-07-30] MEDS: DOCUSATE SODIUM 100MG CAPSULE PO SCH (20:24)
[2023-07-30 20:25] VITALS: BP 137/73; TEMP 97.5; O2SAT 98
[2023-07-30] MEDS: TOPIRAMATE (TopAMAX) 25 MG TAB PO SCH (20:25)
[2023-07-30] MEDS ORDERED: MAGNESIUM OXIDE 400MG TAB (MAG-OX) PO SCH (21:00)
[2023-07-30] MEDS ORDERED: VITAMIN D 1,000 INTERNATIONAL UNITS TABLET PO SCH (21:00)
[2023-07-30 22:00] VITALS: BP 123/63; O2SAT 97
[2023-07-30] MEDS: NAPROXEN 250 MG TAB PO PRN (22:36)
[2023-07-30] MEDS ORDERED: ASPIRIN 81MG CHEW TABLET PO ONE (23:00)
[2023-07-30 23:26] VITALS: BP 115/65; TEMP 98.2; O2SAT 98
[2023-07-31 04:00] VITALS: O2SAT 98
[2023-07-31 04:09] VITALS: BP 105/60; TEMP 97.4; O2SAT 99
[2023-07-31 06:44] LABS: BASO # 0.1 10^3/uL (0.0-0.2); BASO % 1.4 % (0.0-1.0); EOS # 0.7 10^3/uL (0.0-0.5); EOS % 11.1 % (0.0-3.0); HEMATOCRIT 34.7 % (36.0-47.0); HEMOGLOBIN 11.7 g/dl (12.0-15.5); LYMPH # 2.3 10^3/uL (1.5-5.0); LYMPH % 36.7 % (24.0-44.0); MEAN CORPUSCULAR HEMOGLOBIN 30.2 pg (27.0-33.0); MEAN CORPUSCULAR HGB CONC 33.7 g/dl (32.0-36.5); MEAN CORPUSCULAR VOLUME 89.7 fl (80.0-96.0); MONO # 0.5 10^3/uL (0.0-0.8); MONO % 7.1 % (2.0-8.0); NEUTROPHILS # 2.7 10^3/uL (1.5-8.5); NEUTROPHILS % 43.1 % (36.0-66.0); PLATELET COUNT, AUTOMATED 313 10^3/uL (150-450); RED BLOOD COUNT 3.87 10^6/uL (4.00-5.40); WHITE BLOOD COUNT 6.4 10^3/uL (4.0-10.0)
[2023-07-31 07:10] LABS: BLOOD UREA NITROGEN 17 MG/DL (9-23); CALCIUM LEVEL 9.4 MG/DL (8.5-10.1); CARBON DIOXIDE LEVEL 26 MMOL/L (20-31); CHLORIDE LEVEL 108 MMOL/L (98-107); CREATININE FOR GFR 0.78 MG/DL (0.55-1.30); GLOMERULAR FILTRATION RATE > 60.0 (>58); GLUCOSE, FASTING 96 MG/DL (60-100); MAGNESIUM LEVEL 2.2 MG/DL (1.8-2.4); POTASSIUM SERUM 3.7 MMOL/L (3.5-5.1); SODIUM LEVEL 140 MMOL/L (136-145)
[2023-07-31 07:43] VITALS: BP 134/62; TEMP 97.1; O2SAT 100
[2023-07-31] MEDS: TOPIRAMATE (TopAMAX) 25 MG TAB PO SCH (08:20)
[2023-07-31] MEDS: NAPROXEN 250 MG TAB PO PRN (08:21)
[2023-07-31] MEDS: DOCUSATE SODIUM 100MG CAPSULE PO SCH (08:21)
[2023-07-31] MEDS ORDERED: PRENATAL VITAMINS CHEWABLE TABLET PO SCH (09:00)
[2023-07-31] MEDS ORDERED: buPROPion **XL** TABLET 150MG (WELLBUTRIN XL) PO SCH (09:00)
[2023-07-31] MEDS ORDERED: ASPIRIN 81MG CHEW TABLET PO SCH (09:00)
[2023-07-31 11:54] VITALS: BP 117/69; TEMP 99.1; O2SAT 100
[2023-07-31 16:00] VITALS: BP 123/68; TEMP 98.7; O2SAT 98
== END 2023-07-31 17:50 | disposition home or self-care (01) ==
LOC: M ED 13:46 → M ED INP 13:47 → M PCU 18:34
PROVIDERS: ADMIT Internal Medicine; ATTEND Internal Medicine
DX: R51.9 Headache, unspecified (principal); H53.129 Transient visual loss, unspecified eye; Q07.00 Arnold-Chiari syndrome without spina bifida or hydrocephalus; E55.9 Vitamin D deficiency, unspecified; G44.221 Chronic tension-type headache, intractable; F41.9 Anxiety disorder, unspecified; F32.A Depression, unspecified; Z79.899 Other long term (current) drug therapy; J45.909 Unspecified asthma, uncomplicated
CPT/HCPCS: 36415; 70450; 70496; 70498; 71045; 73502; 80047; 80048; 82550; 82553; 83735; 84439; 84443; 84484; 85025; 85610; 85652; 85730; 86140; 87631; 93005; 93041; 93971; 94760; 97161; 97530; 99285; Q9967

== ENCOUNTER 2023-08-03 15:28 | Emergency (ER) | payer OTHER ==
[~2023-08-03] VITALS: Ht 172.7 cm; Wt 70.9 kg
[~2023-08-03 15:28] MED LIST changes: +MAGN200T PO; +NAPR-885 PO; +OXYC1TAB23 PO; +VITA100093 PO
[2023-08-03 15:29] VITALS: TEMP 98.1
[2023-08-03 16:16] LABS: BASO # 0.1 10^3/uL (0.0-0.2); EOS # 0.4 10^3/uL (0.0-0.5); EOS % 7.1 % (0.0-3.0); HEMATOCRIT 36.6 % (36.0-47.0); HEMOGLOBIN 12.4 g/dl (12.0-15.5); LYMPH # 1.7 10^3/uL (1.5-5.0); LYMPH % 29.7 % (24.0-44.0); MEAN CORPUSCULAR HEMOGLOBIN 30.5 pg (27.0-33.0); MEAN CORPUSCULAR HGB CONC 33.9 g/dl (32.0-36.5); MEAN CORPUSCULAR VOLUME 90.1 fl (80.0-96.0); MONO # 0.5 10^3/uL (0.0-0.8); MONO % 8.2 % (2.0-8.0); NEUTROPHILS # 3.1 10^3/uL (1.5-8.5); NEUTROPHILS % 53.5 % (36.0-66.0); PLATELET COUNT, AUTOMATED 355 10^3/uL (150-450); RED BLOOD COUNT 4.06 10^6/uL (4.00-5.40); WHITE BLOOD COUNT 5.8 10^3/uL (4.0-10.0)
[2023-08-03 16:25] LABS: ERYTHROCYTE SEDIMENTATION RATE 12 mm/hr (0-20)
[2023-08-03 16:27] LABS: INR 1.06; PROTHROMBIN TIME 13.5 SECONDS (12.5-14.5)
[2023-08-03 16:28] LABS: PARTIAL THROMBOPLASTIN TIME 33.4 SECONDS (24.8-34.2)
[2023-08-03 16:41] VITALS: BP 117/73; O2SAT 100
[2023-08-03 16:44] LABS: C REACTIVE PROTEIN QUANTITATIV < 0.40 MG/DL (<1.0); CK-MB VALUE MASS < 1.0 NG/ML (<3.6); LIPASE 34 U/L (12-53)
[2023-08-03 16:46] LABS: ALBUMIN 4.5 G/DL (3.2-5.2); ALKALINE PHOSPHATASE 75 U/L (46-116); ALT/SGPT 39 U/L (7.0-40); AST/SGOT 21 U/L (<34); BILIRUBIN,DIRECT 0.3 MG/DL (<0.4); BILIRUBIN,TOTAL 0.9 MG/DL (0.3-1.2); BLOOD UREA NITROGEN 14 MG/DL (9-23); CALCIUM LEVEL 9.1 MG/DL (8.5-10.1); CARBON DIOXIDE LEVEL 26 MMOL/L (20-31); CHLORIDE LEVEL 110 MMOL/L (98-107); CPK CREATINE PHOSPHOKINASE 79 U/L (34-145); CREATININE FOR GFR 0.78 MG/DL (0.55-1.30); GLOMERULAR FILTRATION RATE > 60.0 (>58); GLUCOSE, FASTING 69 MG/DL (60-100); MB/CK RELATIVE INDEX 1.26 (< OR =4); POTASSIUM SERUM 3.7 MMOL/L (3.5-5.1); SODIUM LEVEL 141 MMOL/L (136-145); TOTAL PROTEIN 7.2 G/DL (5.7-8.2)
[2023-08-03 16:47] LABS: THYROID STIMULATING HORMONE 1.878 uIU/ML (0.55-4.78)
[2023-08-03 16:48] LABS: FREE T4 1.08 NG/DL (0.89-1.76)
[2023-08-03] MEDS ORDERED: ISOVUE-370 76% 100ML VIAL As Ordered ONE (17:06)
[2023-08-03 17:52] LABS: CK-MB VALUE MASS < 1.0 NG/ML (<3.6)
[2023-08-03 17:53] LABS: CPK CREATINE PHOSPHOKINASE 69 U/L (34-145); MB/CK RELATIVE INDEX 1.44 (< OR =4)
== END 2023-08-03 18:23 | disposition home or self-care (01) ==
LOC: M ED 15:28
DX: R51.9 Headache, unspecified (principal); R42 Dizziness and giddiness; R00.2 Palpitations; R06.00 Dyspnea, unspecified; M79.662 Pain in left lower leg; F32.A Depression, unspecified; J45.909 Unspecified asthma, uncomplicated; F41.9 Anxiety disorder, unspecified; F10.10 Alcohol abuse, uncomplicated; Z79.52 Long term (current) use of systemic steroids; Z79.1 Long term (current) use of non-steroidal anti-inflammatories (NSAID); Z79.899 Other long term (current) drug therapy
CPT/HCPCS: 36415; 71045; 71275; 80048; 80076; 82550; 82553; 83690; 83880; 84439; 84443; 84484; 85025; 85610; 85652; 85730; 86140; 93005; 93041; 93971; 94760; 99284; Q9967

== ENCOUNTER 2023-08-07 17:50 | Emergency (ER) | payer OTHER ==
[~2023-08-07] VITALS: Ht 172.7 cm; Wt 70.3 kg
[2023-08-07 18:48] LABS: BASO # 0.1 10^3/uL (0.0-0.2); BASO % 0.9 % (0.0-1.0); EOS # 0.4 10^3/uL (0.0-0.5); EOS % 6.4 % (0.0-3.0); HEMATOCRIT 34.3 % (36.0-47.0); HEMOGLOBIN 11.9 g/dl (12.0-15.5); LYMPH # 2.6 10^3/uL (1.5-5.0); LYMPH % 38.5 % (24.0-44.0); MEAN CORPUSCULAR HEMOGLOBIN 30.8 pg (27.0-33.0); MEAN CORPUSCULAR HGB CONC 34.7 g/dl (32.0-36.5); MEAN CORPUSCULAR VOLUME 88.9 fl (80.0-96.0); MONO # 0.6 10^3/uL (0.0-0.8); MONO % 8.2 % (2.0-8.0); NEUTROPHILS # 3.1 10^3/uL (1.5-8.5); NEUTROPHILS % 45.7 % (36.0-66.0); PLATELET COUNT, AUTOMATED 321 10^3/uL (150-450); RED BLOOD COUNT 3.86 10^6/uL (4.00-5.40); WHITE BLOOD COUNT 6.7 10^3/uL (4.0-10.0)
[2023-08-07 19:08] LABS: INR 1.06; PROTHROMBIN TIME 13.5 SECONDS (12.5-14.5)
[2023-08-07 19:09] LABS: PARTIAL THROMBOPLASTIN TIME 33.5 SECONDS (24.8-34.2)
[2023-08-07 19:12] LABS: CK-MB VALUE MASS < 1.0 NG/ML (<3.6)
[2023-08-07 19:15] LABS: ALBUMIN 4.3 G/DL (3.2-5.2); ALKALINE PHOSPHATASE 71 U/L (46-116); ALT/SGPT 37 U/L (7.0-40); AST/SGOT 18 U/L (<34); BILIRUBIN,DIRECT 0.2 MG/DL (<0.4); BILIRUBIN,TOTAL 0.6 MG/DL (0.3-1.2); BLOOD UREA NITROGEN 14 MG/DL (9-23); CALCIUM LEVEL 9.7 MG/DL (8.5-10.1); CARBON DIOXIDE LEVEL 25 MMOL/L (20-31); CHLORIDE LEVEL 109 MMOL/L (98-107); CPK CREATINE PHOSPHOKINASE 55 U/L (34-145); GLOMERULAR FILTRATION RATE > 60.0 (>58); GLUCOSE, FASTING 92 MG/DL (60-100); MB/CK RELATIVE INDEX 1.81 (< OR =4); POTASSIUM SERUM 3.8 MMOL/L (3.5-5.1); SODIUM LEVEL 141 MMOL/L (136-145); TOTAL PROTEIN 7.1 G/DL (5.7-8.2)
[2023-08-07 19:17] LABS: THYROID STIMULATING HORMONE 3.084 uIU/ML (0.55-4.78)
[2023-08-07 19:30] VITALS: BP 113/72; TEMP 98; O2SAT 99
[2023-08-07] MEDS ORDERED: HOLTER MONITOR XX (21:03)
== END 2023-08-07 21:29 | disposition home or self-care (01) ==
LOC: M ED 17:50
DX: R07.89 Other chest pain (principal); R00.2 Palpitations; R51.9 Headache, unspecified; F32.A Depression, unspecified; F41.9 Anxiety disorder, unspecified; Z79.899 Other long term (current) drug therapy

== ENCOUNTER → 2023-08-08 | Outpatient (CLI) | payer OTHER ==
[~2023-08-08] MED LIST changes: +HOLTER MONITOR XX
== END ==
LOC: M EKG 15:34
PROVIDERS: ATTEND Emergency Medicine
DX: R00.2 Palpitations (principal); R00.0 Tachycardia, unspecified

== ENCOUNTER → 2023-11-11 | Outpatient (CLI) | payer OTHER | LOC: M RAD 16:36 | PROVIDERS: ATTEND Physician Assistant | DX: M46.1 Sacroiliitis, not elsewhere classified (principal) ==

== ENCOUNTER 2023-11-18 15:05 | Emergency (ER) | payer OTHER ==
[~2023-11-18] VITALS: Ht 172.7 cm; Wt 69.6 kg
[2023-11-18 16:11] LABS: BASO # 0.1 10^3/uL (0.0-0.2); EOS # 0.3 10^3/uL (0.0-0.5); EOS % 5.8 % (0.0-3.0); HEMATOCRIT 38.4 % (36.0-47.0); HEMOGLOBIN 13.1 g/dl (12.0-15.5); LYMPH # 1.8 10^3/uL (1.5-5.0); LYMPH % 36.3 % (24.0-44.0); MEAN CORPUSCULAR HEMOGLOBIN 30.3 pg (27.0-33.0); MEAN CORPUSCULAR HGB CONC 34.1 g/dl (32.0-36.5); MEAN CORPUSCULAR VOLUME 88.9 fl (80.0-96.0); MONO # 0.4 10^3/uL (0.0-0.8); MONO % 7.8 % (2.0-8.0); NEUTROPHILS # 2.4 10^3/uL (1.5-8.5); NEUTROPHILS % 48.7 % (36.0-66.0); PLATELET COUNT, AUTOMATED 278 10^3/uL (150-450); RED BLOOD COUNT 4.32 10^6/uL (4.00-5.40)
[2023-11-18 16:44] LABS: HCG, SERUM QUALITATIVE NEGATIVE (NEGATIVE)
[2023-11-18 16:50] LABS: CPK CREATINE PHOSPHOKINASE 82 U/L (34-145)
[2023-11-18 16:51] LABS: BLOOD UREA NITROGEN 10 MG/DL (9-23); CALCIUM LEVEL 9.3 MG/DL (8.5-10.1); CARBON DIOXIDE LEVEL 28 MMOL/L (20-31); CHLORIDE LEVEL 102 MMOL/L (98-107); CK-MB VALUE MASS < 1.0 NG/ML (<3.6); FREE T4 1.05 NG/DL (0.89-1.76); GLOMERULAR FILTRATION RATE > 60.0 (>58); GLUCOSE, FASTING 95 MG/DL (60-100); MB/CK RELATIVE INDEX 1.21 (< OR =4); SODIUM LEVEL 137 MMOL/L (136-145); THYROID STIMULATING HORMONE 1.497 uIU/ML (0.55-4.78)
[2023-11-18] MEDS ORDERED: ISOVUE-370 76% 100ML VIAL As Ordered ONE (17:19)
[2023-11-18 17:46] LABS: CK-MB VALUE MASS < 1.0 NG/ML (<3.6)
[2023-11-18 17:49] LABS: CPK CREATINE PHOSPHOKINASE 73 U/L (34-145); MB/CK RELATIVE INDEX 1.36 (< OR =4)
[2023-11-18] MEDS ORDERED: KETOROLAC 30 MG/ML 1ML VIAL IV ONE (18:10)
[2023-11-18 18:16] VITALS: BP 129/81; TEMP 99.4; O2SAT 98
== END 2023-11-18 18:23 | disposition home or self-care (01) ==
LOC: M ED 15:05
DX: R07.89 Other chest pain (principal); J45.909 Unspecified asthma, uncomplicated; Z86.73 Personal history of transient ischemic attack (TIA), and cerebral infarction without residual deficits; Z79.899 Other long term (current) drug therapy
CPT/HCPCS: 70450; 71045; 71275; 80048; 82550; 82553; 83735; 84439; 84443; 84484; 84703; 85025; 85379; 93005; 93041; 94760; 99284; Q9967

== ENCOUNTER → 2023-11-20 | Outpatient (CLI) | payer OTHER ==
[2023-11-20 16:15] LABS: BASO % 0.7 % (0.0-1.0); EOS # 0.3 10^3/uL (0.0-0.5); EOS % 5.6 % (0.0-3.0); HEMATOCRIT 36.7 % (36.0-47.0); HEMOGLOBIN 12.6 g/dl (12.0-15.5); LYMPH # 2.2 10^3/uL (1.5-5.0); MEAN CORPUSCULAR HEMOGLOBIN 30.7 pg (27.0-33.0); MEAN CORPUSCULAR HGB CONC 34.3 g/dl (32.0-36.5); MEAN CORPUSCULAR VOLUME 89.3 fl (80.0-96.0); MONO # 0.5 10^3/uL (0.0-0.8); MONO % 8.5 % (2.0-8.0); NEUTROPHILS # 2.6 10^3/uL (1.5-8.5); NEUTROPHILS % 45.8 % (36.0-66.0); PLATELET COUNT, AUTOMATED 287 10^3/uL (150-450); RED BLOOD COUNT 4.11 10^6/uL (4.00-5.40); WHITE BLOOD COUNT 5.7 10^3/uL (4.0-10.0)
[2023-11-20 16:34] LABS: ALKALINE PHOSPHATASE 79 U/L (46-116); ALT/SGPT 23 U/L (7.0-40); AST/SGOT 16 U/L (<34); BILIRUBIN,TOTAL 0.8 MG/DL (0.3-1.2); BLOOD UREA NITROGEN 10 MG/DL (9-23); CALCIUM LEVEL 9.2 MG/DL (8.5-10.1); CARBON DIOXIDE LEVEL 31 MMOL/L (20-31); CHLORIDE LEVEL 104 MMOL/L (98-107); CREATININE FOR GFR 0.69 MG/DL (0.55-1.30); GLOMERULAR FILTRATION RATE > 60.0 (>58); GLUCOSE, FASTING 90 MG/DL (60-100); SODIUM LEVEL 139 MMOL/L (136-145); TOTAL PROTEIN 7.3 G/DL (5.7-8.2)
[2023-11-20 16:49] LABS: HCG, SERUM QUALITATIVE NEGATIVE (NEGATIVE)
== END ==
LOC: M LAB 15:37
PROVIDERS: ATTEND Orthopaedic Surgery
DX: M24.152 Other articular cartilage disorders, left hip (principal); M25.552 Pain in left hip; Z98.890 Other specified postprocedural states

== ENCOUNTER → 2023-12-04 | Outpatient (CLI) | payer OTHER | LOC: M RAD 16:16 | PROVIDERS: ATTEND Physician Assistant Surgical | DX: M24.152 Other articular cartilage disorders, left hip (principal); M25.552 Pain in left hip ==

== ENCOUNTER → 2024-08-02 | Outpatient (CLI) | payer OTHER ==
[~2024-08-02] MED LIST changes: +ONDA-282 PO; -ONDA4TAB6 PO
[2024-08-02 18:02] LABS: BASO % 0.5 % (0.0-1.0); EOS # 0.1 10^3/uL (0.0-0.5); EOS % 1.7 % (0.0-3.0); HEMATOCRIT 37.6 % (36.0-47.0); HEMOGLOBIN 12.7 g/dl (12.0-15.5); LYMPH % 34.5 % (24.0-44.0); MEAN CORPUSCULAR HEMOGLOBIN 29.9 pg (27.0-33.0); MEAN CORPUSCULAR HGB CONC 33.8 g/dl (32.0-36.5); MEAN CORPUSCULAR VOLUME 88.5 fl (80.0-96.0); MONO # 0.5 10^3/uL (0.0-0.8); MONO % 8.9 % (2.0-8.0); NEUTROPHILS # 3.1 10^3/uL (1.5-8.5); NEUTROPHILS % 54.1 % (36.0-66.0); PLATELET COUNT, AUTOMATED 258 10^3/uL (150-450); RED BLOOD COUNT 4.25 10^6/uL (4.00-5.40); WHITE BLOOD COUNT 5.8 10^3/uL (4.0-10.0)
[2024-08-02 18:36] LABS: ALBUMIN 4.3 G/DL (3.2-5.2); ALKALINE PHOSPHATASE 76 U/L (35-104); ALT/SGPT 29 U/L (7.0-40); AST/SGOT 17 U/L (<34); BILIRUBIN,TOTAL 1.1 MG/DL (0.3-1.2); BLOOD UREA NITROGEN 17 MG/DL (9-23); CALCIUM LEVEL 9.9 MG/DL (8.5-10.1); CARBON DIOXIDE LEVEL 29 MMOL/L (20-31); CHLORIDE LEVEL 103 MMOL/L (98-107); CHOLESTEROL LEVEL 147 MG/DL (<200); CHOLESTEROL RISK RATIO 2.31 (<5); CREATININE FOR GFR 0.62 MG/DL (0.55-1.30); GLOMERULAR FILTRATION RATE > 60.0 (>58); GLUCOSE, FASTING 91 MG/DL (60-100); HDL CHOLESTEROL 63.5 MG/DL (>40); LDL CHOLESTEROL 65.5 MG/DL (<100); NON-HDL-C 83.5 MG/DL; POTASSIUM SERUM 4.3 MMOL/L (3.5-5.1); SODIUM LEVEL 140 MMOL/L (136-145); THYROID STIMULATING HORMONE 1.285 uIU/ML (0.55-4.78); TOTAL PROTEIN 7.7 G/DL (5.7-8.2); TRIGLYCERIDES LEVEL 90 MG/DL (<150)
== END ==
LOC: M LAB 17:41
PROVIDERS: ATTEND Internal Medicine Cardiovascular Disease
DX: R07.2 Precordial pain (principal); R00.2 Palpitations; R55 Syncope and collapse; R94.31 Abnormal electrocardiogram [ECG] [EKG]; R06.02 Shortness of breath; I34.0 Nonrheumatic mitral (valve) insufficiency; J45.909 Unspecified asthma, uncomplicated; Z82.49 Family history of ischemic heart disease and other diseases of the circulatory system; K21.9 Gastro-esophageal reflux disease without esophagitis; F41.9 Anxiety disorder, unspecified

== ENCOUNTER → 2024-08-16 | Outpatient (CLI) | payer OTHER ==
[2024-08-16 18:07] LABS: LIPASE 36 U/L (12-53)
[2024-08-16 18:08] LABS: AMYLASE 100 U/L (30-118)
== END ==
LOC: M WUC 11:48
PROVIDERS: ATTEND Physician Assistant Medical
DX: R10.12 Left upper quadrant pain (principal); R11.0 Nausea; R19.4 Change in bowel habit

== ENCOUNTER 2024-08-23 15:42 | Emergency (ER) | payer OTHER ==
[~2024-08-23] VITALS: Ht 172.7 cm; Wt 73.0 kg
[2024-08-23] MEDS ORDERED: SAFF176. PO (16:10)
[2024-08-23] MEDS ORDERED: BLACK SEED (16:10)
[2024-08-23] MEDS ORDERED: COMB0.9D TD (16:10)
[2024-08-23 16:38] LABS: BASO % 0.5 % (0.0-1.0); EOS # 0.2 10^3/uL (0.0-0.5); EOS % 3.4 % (0.0-3.0); HEMATOCRIT 38.5 % (36.0-47.0); HEMOGLOBIN 13.1 g/dl (12.0-15.5); LYMPH # 2.3 10^3/uL (1.5-5.0); MEAN CORPUSCULAR HEMOGLOBIN 29.9 pg (27.0-33.0); MEAN CORPUSCULAR VOLUME 87.9 fl (80.0-96.0); MONO # 0.5 10^3/uL (0.0-0.8); MONO % 8.1 % (2.0-8.0); NEUTROPHILS # 3.2 10^3/uL (1.5-8.5); NEUTROPHILS % 50.7 % (36.0-66.0); PLATELET COUNT, AUTOMATED 275 10^3/uL (150-450); RED BLOOD COUNT 4.38 10^6/uL (4.00-5.40); WHITE BLOOD COUNT 6.2 10^3/uL (4.0-10.0)
[2024-08-23 16:50] LABS: INR 0.95; PARTIAL THROMBOPLASTIN TIME 31.5 SECONDS (24.8-34.2); PROTHROMBIN TIME 12.9 SECONDS (12.5-14.5)
[2024-08-23 17:04] LABS: ALBUMIN 4.4 G/DL (3.2-5.2); ALKALINE PHOSPHATASE 73 U/L (35-104); ALT/SGPT 24 U/L (7.0-40); AST/SGOT 16 U/L (<34); BILIRUBIN,DIRECT 0.4 MG/DL (<0.4); BILIRUBIN,TOTAL 1.4 MG/DL (0.3-1.2); BLOOD UREA NITROGEN 12 MG/DL (9-23); CALCIUM LEVEL 9.1 MG/DL (8.5-10.1); CARBON DIOXIDE LEVEL 26 MMOL/L (20-31); CHLORIDE LEVEL 101 MMOL/L (98-107); CK-MB VALUE MASS < 1.0 NG/ML (<3.6); CPK CREATINE PHOSPHOKINASE 90 U/L (34-145); GLOMERULAR FILTRATION RATE > 60.0 (>58); GLUCOSE, FASTING 91 MG/DL (60-100); MB/CK RELATIVE INDEX 1.11 (< OR =4); POTASSIUM SERUM 3.7 MMOL/L (3.5-5.1); SODIUM LEVEL 138 MMOL/L (136-145); TOTAL PROTEIN 7.7 G/DL (5.7-8.2)
[2024-08-23] MEDS ORDERED: ISOVUE-370 76% 100ML VIAL As Ordered ONE (17:20)
[2024-08-23 18:06] LABS: CK-MB VALUE MASS < 1.0 NG/ML (<3.6)
[2024-08-23 18:07] LABS: CPK CREATINE PHOSPHOKINASE 79 U/L (34-145); MB/CK RELATIVE INDEX 1.26 (< OR =4)
[2024-08-23 18:21] VITALS: BP 107/57; TEMP 98.4; O2SAT 100
== END 2024-08-23 18:28 | disposition home or self-care (01) ==
LOC: M ED 15:42
DX: R07.1 Chest pain on breathing (principal); J45.909 Unspecified asthma, uncomplicated; Q07.00 Arnold-Chiari syndrome without spina bifida or hydrocephalus; Z79.899 Other long term (current) drug therapy
CPT/HCPCS: 71045; 71275; 80048; 80076; 82550; 82553; 84484; 85025; 85610; 85730; 87486; 87581; 87633; 87798; 93005; 93041; 93971; 94760; 99285; Q9967

== ENCOUNTER → 2024-10-21 | Outpatient (CLI) | payer OTHER ==
[~2024-10-21] MED LIST changes: +BLACK SEED; +COMB0.9D TD; +ISOVUE-370 76% 100ML VIAL As Ordered ONE
== END ==
LOC: M RAD 16:35
PROVIDERS: ATTEND Physician Assistant Medical
DX: R10.12 Left upper quadrant pain (principal); R11.0 Nausea; R19.4 Change in bowel habit; Z90.49 Acquired absence of other specified parts of digestive tract
CPT/HCPCS: 74177; Q9967

== ENCOUNTER → 2025-06-23 | Outpatient (REF) | payer OTHER ==
[~2025-06-23] MED LIST changes: +ALBU8.5H INH; +BLAC4.5O PO; +BUPR150T12 PO; -ISOVUE-370 76% 100ML VIAL As Ordered ONE
[2025-06-23 18:39] LABS: C REACTIVE PROTEIN QUANTITATIV < 0.50 MG/DL (<1.0)
== END ==
LOC: M LAB REF 17:13
PROVIDERS: ATTEND Family Medicine
DX: M25.552 Pain in left hip (principal); K80.80 Other cholelithiasis without obstruction